=== PATIENT | female | born 1985 | race Caucasian/White ===

== ENCOUNTER 2019-06-15 10:03 | Emergency (ER) | payer BC ==
[2019-06-15] MEDS ORDERED: ONDANSETRON 4 MG/2 ML VIAL ONE (10:52)
[2019-06-15] MEDS ORDERED: MORPHINE 4 MG/ML SYR ONE (10:52)
[2019-06-15] MEDS ORDERED: NA CHLORIDE 0.9% 1,000 ML ONE (10:52)
[2019-06-15 11:08] LABS: Absolute Lymphocytes (CBC) 1.1 K/uL (0.7-4.9); Basophils % 0.4 % (0-1.3); Hematocrit 38.6 % (36.0-45.0); Lymphocytes % 11.1 % (15.3-44.8); MPV 9.2 fL (7.6-11.3); RBC Red Blood Cell Count 4.75 M/uL (3.86-4.86)
[2019-06-15 11:28] LABS: Albumin 3.7 g/dL (3.4-5.0); Bilirubin Direct 0.2 mg/dL (0-0.2); Bilirubin Total 0.7 mg/dL (0.2-1.0); Potassium 3.4 mmol/L (3.5-5.1); Protein, Total 8.1 g/dL (6.4-8.2)
--- NOTE | 2019-06-15 11:51 | EDPHYS ---
Physician Documentation [facility] Name: Kandy Kelly Age: 34 yrs Sex: Female : 1985 Arrival Date: 06/15/2019 Time: 10:06 Bed 8 Private MD: ED Physician Amaya Centeno HPI: 06/15 11:48 This 34 yrs old Female presents to ER via Ambulatory with complaints of Pain ma2 All Over. 11:48 The patient presents with diarrhea and vomiting . Onset: The symptoms/episode ma2 began/occurred gradually, 2 day(s) ago. Associated signs and symptoms: Pertinent negatives: anorexia, constipation, fever, vaginal discharge, vomiting blood. Severity of pain: At its worst the pain was mild in the emergency department the pain is unchanged. The patient has not experienced similar symptoms in the past. 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 - Social history:: Smoking status: Patient/guardian denies using tobacco, Patient/guardian denies using alcohol, street drugs, The patient lives with family. - Ebola Screening: : Patient denies travel to an Ebola-affected area in the 21 days before illness onset. - Family history:: not pertinent. ROS: 11:48 Constitutional: Negative for fever, chills, and weight loss. ma2 11:48 All other systems are negative. Exam: 11:48 Constitutional: has generalized muscle aches , in pain, otherwise This is a well ma2 developed, well nourished patient who is awake, alert, and in no acute distress. Head/Face: Normocephalic, atraumatic. Eyes: Pupils equal round and reactive to light, extra-ocular motions intact. Lids and lashes normal. Conjunctiva and sclera are non-icteric and not injected. Cornea within normal limits. Periorbital areas with no swelling, redness, or edema. ENT: Nares patent. No nasal discharge, no septal abnormalities noted. Tympanic membranes are normal and external auditory canals are clear. Oropharynx with no redness, swelling, or masses, exudates, or evidence of obstruction, uvula midline. Mucous membranes moist. Neck: Trachea midline, no thyromegaly or masses palpated, and no cervical lymphadenopathy. Supple, full range of motion without nuchal rigidity, or vertebral point tenderness. No Meningismus. Chest/axilla: Normal chest wall appearance and motion. Nontender with no deformity. No lesions are appreciated. Cardiovascular: Regular rate and rhythm with a normal S1 and S2. No gallops, murmurs, or rubs. Normal PMI, no JVD. No pulse deficits. Respiratory: Lungs have equal breath sounds bilaterally, clear to auscultation and percussion. No rales, rhonchi or wheezes noted. No increased work of breathing, no retractions or nasal flaring. Abdomen/GI: Soft, non-tender, with normal bowel sounds. No distension or tympany. No guarding or rebound. No evidence of tenderness throughout. MS/ Extremity: Pulses equal, no cyanosis. Neurovascular intact. Full, normal range of motion. Neuro: Awake and alert, GCS 15, oriented to person, place, time, and situation. Cranial nerves II-XII grossly intact. Motor strength 5/5 in all extremities. Sensory grossly intact. Cerebellar exam normal. Normal gait. Vital Signs: 10:28 BP 103 / 72; Pulse 124; Resp 20; Temp 98.3(O); Pulse Ox 97% on R/A; Weight 77.11 kg aj1 (R); Height 5 ft. 3 in. (160.02 cm) (R); Pain 10/10; 10:59 BP 113 / 83; Pulse 100; Resp 18; Pulse Ox 100% on R/A; tw2 11:23 BP 104 / 73; Pulse 85; Resp 17; Temp 98.4(O); Pulse Ox 100% on R/A; Pain 7/10; tw2 12:08 BP 99 / 72; Pulse 91; Resp 17; Pulse Ox 100% on R/A; tw2 10:28 Body Mass Index 30.11 (77.11 kg, 160.02 cm) 1 MDM: 10:33 Patient medically screened. ma2 11:48 Differential diagnosis: gastritis, gastroesophageal reflux disease, Irritable bowel ma2 syndrome. Data reviewed: vital signs, nurses notes. Counseling: I had a detailed discussion with the patient and/or guardian regarding: the historical points, exam findings, and any diagnostic results supporting the discharge/admit diagnosis, the presence of at least one elevated blood pressure reading (>120/80) during this emergency department visit, the need for outpatient follow up. Response to treatment: the patient's symptoms have resolved after treatment. 06/15 10:42 Order name: Flu; Complete Time: 11:38 ma2 06/15 10:42 Order name: Basic Metabolic Panel; Complete Time: 11:38 ma2 06/15 10:42 Order name: CBC with Diff; Complete Time: :38 ma2 06/15 10:42 Order name: Creatinine for Radiology; Complete Time: 11:38 ma2 06/15 10:42 Order name: Hepatic Function; Complete Time: :38 ma2 06/15 10:42 Order name: Lipase; Complete Time: 11:38 ma2 06/15 10:42 Order name: IV Saline Lock; Complete Time: 10:45 ma2 06/15 10:42 Order name: Labs collected and sent; Complete Time: 10:45 ma2 06/15 10:53 Order name: Strep; Complete Time: 11:38 06/15 11:29 Order name: Throat Culture EDMS Administered Medications: 10:53 Drug: Zofran 4 mg Route: IVP; Site: right antecubital; tw2 12:07 Follow up: Response: No adverse reaction; Nausea is decreased tw2 10:55 Drug: morphine 4 mg Route: IVP; Site: right antecubital; tw2 12:07 Follow up: Response: No adverse reaction; Pain is decreased; RASS: Alert and Calm (0) tw2 10:59 Drug: NS 0.9% 1000 ml Route: IV; Rate: 1 bolus; Site: right antecubital; tw2 12:08 Follow up: Response: No adverse reaction; IV Status: Completed infusion; IV Intake: tw2 1000ml Disposition: 06/15/19 11:50 Discharged to Home. Impression: Acute upper respiratory infection, unspecified. - Condition is Stable. - Discharge Instructions: Viral Gastroenteritis, Adult, [id number]. - Prescriptions for Tylenol- Codeine #3 300-30 mg Oral Tablet - take 2 tablet by ORAL route every 6 hours As needed; 30 tablet. Zofran 4 mg Oral Tablet - take 1 tablet by ORAL route every 12 hours As needed; 20 tablet. - Family Work Release, Medication Reconciliation Form, Thank You Letter, Antibiotic Education, Prescription Opioid Use form. - Follow up: Private Physician; When: Tomorrow; Reason: Recheck today's complaints, Continuance of care. Signatures: Dispatcher [employer] Rosio Douglas RN RN aj1 Porsche Melgar RN RN tw2 Amaya Centeno MD MD ma2 Corrections: (The following items were deleted from the chart) 12:09 11:50 06/15/2019 11:50 Discharged to Home. Impression: Acute upper respiratory tw2 infection, unspecified. Condition is Stable. Forms are Family Work Release, Medication Reconciliation Form, Thank You Letter, Antibiotic Education, Prescription Opioid Use. Follow up: Private Physician; When: Tomorrow; Reason: Recheck today's complaints, Continuance of care. ma2
--- NOTE | 2019-06-15 11:51 | ER ---
Nurse's Notes [facility] Name: Kandy Kelly Age: 34 yrs Sex: Female : 1985 Arrival Date: 06/15/2019 Time: 10:06 Bed 8 Private MD: Diagnosis: Acute upper respiratory infection, unspecified Presentation: 06/15 10:24 Presenting complaint: Patient states: "3 days ago I started with diarrhea, and I had aj1 chills, in the middle of the night I started vomiting. I went to [place] yesterday and they said that I had scarlet fever. They tested for strep and flu and I was negative for both but they gave me Amoxicillin and Tamiflu anyway, but its just so painful my joints are hurting so bad and my skin feels like I have bugs crawling all over me". Transition of care: patient was not received from another setting of care. Onset of symptoms was 2019. Risk Assessment: Do you want to hurt yourself or someone else? Patient reports no desire to harm self or others. Initial Sepsis Screen: Does the patient meet any 2 criteria? HR > 90 bpm. No. Patient's initial sepsis screen is negative. Does the patient have a suspected source of infection? No. Patient's initial sepsis screen is negative. Care prior to arrival: None. 10:24 Method Of Arrival: Ambulatory aj1 10:24 Acuity: FLORENCIO 3 aj1 Triage Assessment: 10:28 General: Appears uncomfortable, Behavior is anxious, crying. Pain: Pain currently is 10 aj1 out of 10 on a pain scale. Neuro: Level of Consciousness is awake, alert, obeys commands. Cardiovascular: Patient's skin is warm and dry. Respiratory: Airway is patent Respiratory effort is even, unlabored, Respiratory pattern is regular, symmetrical. 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 - Social history:: Smoking status: Patient/guardian denies using tobacco, Patient/guardian denies using alcohol, street drugs, The patient lives with family. - Ebola Screening: : Patient denies travel to an Ebola-affected area in the 21 days before illness onset. - Family history:: not pertinent. Screenin:00 Abuse screen: Denies threats or abuse. Nutritional screening: No deficits noted. tw2 Tuberculosis screening: No symptoms or risk factors identified. Fall Risk None identified. Assessment: 11:00 General: Appears uncomfortable, Behavior is calm, cooperative, appropriate for age. tw2 Pain: Complains of pain in pain all over. Neuro: Level of Consciousness is awake, alert, obeys commands, Oriented to person, place, time, situation. Cardiovascular: Heart tones S1 S2 Patient's skin is warm and dry. Respiratory: Reports cough that is Airway is patent Respiratory effort is even, unlabored, Respiratory pattern is regular, symmetrical, Breath sounds are clear bilaterally. GI: Reports nausea. : No signs and/or symptoms were reported regarding the genitourinary system. EENT: Reports nasal congestion nasal discharge pain when swallowing. Derm: Skin is intact, is healthy with good turgor, Skin is dry, Skin is red, on trunk and arms, which pt reports just happened recently Skin temperature is warm. Musculoskeletal: Range of motion: intact in all extremities. 11:28 Reassessment: Patient appears in no apparent distress at this time. Patient and/or tw2 family updated on plan of care and expected duration. Pain level reassessed. Patient is alert, oriented x 3, equal unlabored respirations, skin warm/dry/pink. pt states "i am still shivering but i dont know why the pain is better" Patient states feeling better. 12:08 Reassessment: Patient appears in no apparent distress at this time. Patient and/or tw2 family updated on plan of care and expected duration. Pain level reassessed. Patient is alert, oriented x 3, equal unlabored respirations, skin warm/dry/pink. Vital Signs: 10:28 BP 103 / 72; Pulse 124; Resp 20; Temp 98.3(O); Pulse Ox 97% on R/A; Weight 77.11 kg aj1 (R); Height 5 ft. 3 in. (160.02 cm) (R); Pain 10/10; 10:59 BP 113 / 83; Pulse 100; Resp 18; Pulse Ox 100% on R/A; tw2 11:23 BP 104 / 73; Pulse 85; Resp 17; Temp 98.4(O); Pulse Ox 100% on R/A; Pain 7/10; tw2 12:08 BP 99 / 72; Pulse 91; Resp 17; Pulse Ox 100% on R/A; tw2 10:28 Body Mass Index 30.11 (77.11 kg, 160.02 cm) aj1 ED Course: 10:06 Patient arrived in ED. rg4 10:28 Triage completed. aj1 10:28 Arm band placed on Patient placed in an exam room. aj1 10:30 Bed in low position. Adult w/ patient. Pulse ox on. NIBP on. tw2 10:40 Amaya Centeno MD is Attending Physician. ma2 10:45 Initial lab(s) drawn, by me, sent to lab. Inserted saline lock: 22 gauge in right jb1 antecubital area, using aseptic technique. Blood collected. 10:48 Porsche Melgar RN is Primary Nurse. tw2 10:57 Strep Sent. jb1 10:57 Flu Sent. jb1 12:08 No provider procedures requiring assistance completed. IV discontinued, intact, tw2 bleeding controlled, No redness/swelling at site. Pressure dressing applied. Administered Medications: 10:53 Drug: Zofran 4 mg Route: IVP; Site: right antecubital; tw2 12:07 Follow up: Response: No adverse reaction; Nausea is decreased tw2 10:55 Drug: morphine 4 mg Route: IVP; Site: right antecubital; tw2 12:07 Follow up: Response: No adverse reaction; Pain is decreased; RASS: Alert and Calm (0) tw2 10:59 Drug: NS 0.9% 1000 ml Route: IV; Rate: 1 bolus; Site: right antecubital; tw2 12:08 Follow up: Response: No adverse reaction; IV Status: Completed infusion; IV Intake: tw2 1000ml Intake: 12:08 IV: 1000ml; Total: 1000ml. tw2 Outcome: 11:50 Discharge ordered by . ma2 12:08 Discharged to home ambulatory, with significant other. tw2 12:08 Condition: stable 12:08 Discharge instructions given to patient, significant other, Instructed on discharge instructions, follow up and referral plans. no drinking with medication, no driving heavy equipment, medication usage, Demonstrated understanding of instructions, follow-up care, medications, Prescriptions given X 2. 12:09 Patient left the ED. tw2 Signatures: Dane Cr jb1 Rosio Mccormack RN RN aj1 Porsche Melgar RN RN tw2 Ml Humphrey rg4 Amaya Centeno MD MD ma2
== END 2019-06-15 12:09 | disposition home or self-care (01) ==
LOC: ER 10:03
DX: J06.9 Acute upper respiratory infection, unspecified (principal)
CPT/HCPCS: 96361; 87070; 85025; 80048; 36415; 80076; 87081; 83690; 87804 ×2; 96375; 96374; 99284; J7030; J2405